=== PATIENT | female | born 1980 | race Caucasian/White ===

== ENCOUNTER → 2017-02-22 | Outpatient (CLI) | payer BC ==
--- NOTE | 2017-02-26 13:51 | MM ---
Reason for exam: screening (asymptomatic). Baseline mammogram. History: Patient had first child at age 31. Physical Findings: Nurse did not find any significant physical abnormalities on exam. MG Screening Mammo w CAD Bilateral CC and MLO view(s) were taken. The breast tissue is heterogeneously dense. This may lower the sensitivity of mammography. Asymmetric density anterior left breast, probably summation density but warrants further evaluation. These results were verbally communicated with the patient and result sheet given to the patient on 02/22/17. ASSESSMENT: Incomplete: need additional imaging evaluation, BI-RAD 0 RECOMMENDATION: Special view mammogram of the left breast. If lesion persists on supplemental views, image directed ultrasound is recommended. [facility] will attempt to contact patient to return for supplemental views and ultrasound if indicated.
--- NOTE | 2017-02-26 13:52 | MM ---
Reason for exam: additional evaluation requested from abnormal screening. History: Patient had first child at age 31. Physical Findings: Breast exam preformed at baseline screening. MG Work Up Mamm w CAD LT LM, spot compression CC, and spot compression MLO view(s) were taken of the left breast. The breast tissue is heterogeneously dense. This may lower the sensitivity of mammography. The questioned focal asymmetry completely disperses compatible with summation density. These results were verbally communicated with the patient and result sheet given to the patient on 02/22/17. ASSESSMENT: Negative, BI-RAD 1 RECOMMENDATION: Routine screening mammogram of both breasts at age 38.
== END | disposition home or self-care (01) ==
LOC: RADMAMWWP 12:59
PROVIDERS: ATTEND Obstetrics & Gynecology
DX: Z12.31 Encounter for screening mammogram for malignant neoplasm of breast (principal); R92.2 Inconclusive mammogram
CPT/HCPCS: G0202; G0206

== ENCOUNTER → 2018-05-12 | Outpatient (CLI) | payer BC ==
[2018-05-12 15:47] LABS: Basophils % (A) 0 %; Eosinophils # (A) 0.1 k/uL (0-0.7); Eosinophils % (A) 1 %; HCT 40.5 % (34.0-46.0); HGB 13.3 gm/dL (11.4-16.0); Lymphocytes # (A) 1.7 k/uL (1.0-4.8); Lymphocytes % (A) 17 %; MCH 29.5 pg (25.0-35.0); MCHC 32.9 g/dL (31.0-37.0); MCV 89.7 fL (80.0-100.0); Mean Platelet Volume 6.4; Monocytes # (A) 0.4 k/uL (0-1.0); Monocytes % (A) 4 %; Neutrophils # (A) 7.8 k/uL (1.3-7.7); Neutrophils % (A) 78 %; Platelet Count 255 k/uL (150-450); RBC 4.52 m/uL (3.80-5.40); RDW 12.4 % (11.5-15.5); WBC 9.9 k/uL (3.8-10.6)
== END | disposition home or self-care (01) ==
LOC: LABWHC1 15:13
PROVIDERS: ATTEND Obstetrics & Gynecology
DX: Z01.812 Encounter for preprocedural laboratory examination (principal); O02.1 Missed abortion
CPT/HCPCS: 36415; 85025

== ENCOUNTER → 2018-05-12 | Day surgery (SDC) | payer BC ==
--- NOTE | 2018-05-12 17:51 | HP ---
HISTORY AND PHYSICAL DATE OF PROCEDURE: 05/13/2018 This is a 37-year-old white female, 4, para 1-0-2-1, LMP 01/30/2018, at 15 and 3/7 weeks' gestation by dates. Patient presents with spotting that began over the weekend, is accompanied by no cramping. Ultrasound today at [facility] reveals a 12 and 5/7 weeks' intrauterine with no heart rate, consistent with missed AB. After thorough consultation, patient and her would like to proceed with D and E. All risks, benefits and alternatives of this plan have been discussed in detail. PAST MEDICAL HISTORY: Significant for dysfunctional uterine bleeding. PAST SURGICAL HISTORY: Voluntary termination of 2000. CURRENT MEDICATIONS: vitamins daily. ALLERGIES: NONE KNOWN. FAMILY HISTORY: Significant for hypertension, stomach cancer, kidney cancer and heart disease. SOCIAL HISTORY: Patient is . She has never been a tobacco smoker. She denies alcohol or drug use. PHYSICAL EXAMINATION: This is a pleasant white female. She is 5 feet 4 inches, 160 pounds, blood pressure 110/76. HEENT examination reveals good dentition. No thyromegaly. Normal range of motion of the neck. CHEST: Clear to auscultation in all calle anteriorly and posteriorly. Breasts are bilaterally symmetric. No skin dimpling, nipple discharge, axillary adenopathy or discernible lesions or masses. ABDOMEN: Soft. Active bowel sounds. No CVA tenderness. No organosplenomegaly. Cardiac exam reveals regular rate and rhythm with no murmur, click or rub. On pelvic exam, cervical external os is open to fingertip. Internal os is closed. Cervix is approximately 2.5 cm long to palpation. Uterus is mobile, symmetric, approximately 12-week size, anteverted, anteflexed. Adnexa are negative bilaterally. IMPRESSION: Twelve and 5/7 weeks sonographically with missed AB. No heart tones auscultated at the bedside today. PLAN: We will proceed with dilatation of the cervix and evacuation of the uterine cavity. The risks, benefits and alternatives have been discussed in detail. The patient is Rh negative and will require a RhoGAM injection tomorrow. Risks of anesthesia, aspiration, nerve damage or even are discussed. Risk of bleeding, infection, perforation to the uterus, cervix, blood vessels or indeed any organs are all discussed. The ACOG pamphlet on this procedure have been given to the patient for her review. I believe that the patient and her understand our discussion with no reservation or question. DEV / JARETTN: [id number] /
== END ==
LOC: CANPRESDC → OR 12:00
PROVIDERS: ATTEND Obstetrics & Gynecology
DX: Z53.9 Procedure and treatment not carried out, unspecified reason (principal)
CPT/HCPCS: 86850; 86900; 86901

== ENCOUNTER → 2018-05-12 | Outpatient (CLI) | payer BC ==
--- NOTE | 2018-05-12 13:37 | US ---
EXAMINATION TYPE: US OB >= 14 wk fetus DATE OF EXAM: 05/12/2018 COMPARISON: None CLINICAL HISTORY: O46.92 Bleeding 2nd trimester TECHNIQUE: Transabdominal (TA) GESTATIONAL AGE / DATING Physician Established: (14 weeks/4 days) EDC: 11/06/2018 Dates by LMP: LMP unknown Dates by First Scan: No previous this is first scan Dates by Current Scan: (12 weeks/5 days) EDC: no heart tones SURVEY IUP: Single PLACENTA: Anterior PREVIA: No Previa GOLDY: 10.7 cm Normal CERVICAL LENGTH (transabdominal: norm > 3.0cm): 3.6 cm BIOMETRY PRESENTATION: Breech BPD: 1.8 cm 12 weeks / 5 days HC: 6.6 cm 12 weeks / 4 days AC: 5.9 cm 12 weeks / 5 days FL: 0.9 cm 12 weeks / 5 days ESTIMATED WEIGHT IN GRAMS: 63.2 grams ESTIMATED WEIGHT IN LBS/OZ: 0 lbs. 2 oz. WEIGHT PERCENTAGE BASED ON ESTABLISHED DATES: < 3% HC/AC: 1.1 FL/AC: 15.7 HEART RATE: not detected IMPRESSION: No heart tones identified within the single intrauterine with a sonographic age of 12 weeks and 5 days. Confirmation with a second ultrasound is recommended prior to surgical or medical intervention although findings are most compatible with demise. [employer] impression relayed to Flori at Dr. Blackburn's office (no heart tones detected, 12 week 5 day fetus).
== END | disposition home or self-care (01) ==
LOC: RADUSWWP 12:53
PROVIDERS: ATTEND Obstetrics & Gynecology
DX: O46.92 Antepartum hemorrhage, unspecified, second trimester (principal); Z3A.12 12 weeks gestation of pregnancy
CPT/HCPCS: 76805

== ENCOUNTER → 2019-07-02 | Outpatient (CLI) | payer BC ==
--- NOTE | 2019-07-02 12:17 | CT ---
EXAMINATION TYPE: CT abdomen pelvis w con DATE OF EXAM: 07/02/2019 COMPARISON: NONE HISTORY: 39-year-old female Pain and pressure post urination. TECHNIQUE: Contiguous axial scanning of the abdomen and pelvis following administration of 100 ml Iso mary 300 IV contrast. Delayed images through the kidneys and coronal/sagittal reconstructions perform ed. CT DLP: 631.5 mGycm Automated exposure control for dose reduction was used. FINDINGS: Heart normal size without pericardial effusion. Lung bases clear without pleural effusion. Some focal fat along the anterior falciform ligament. No other focal liver lesion. Portal venous syst em is patent. No biliary ductal dilatation. Gallbladder, adrenal glands, left kidney, spleen with anterior splenule, and pancreas appear within n ormal limits. Extrarenal pelvis versus mild pelviectasis on the right with symmetric uptake and excretion of contra st from both kidneys. Scattered nonenlarged and borderline enlarged mesenteric lymph nodes measuring up to 7 mm throughout the mesentery. No dilated small bowel, free fluid, or free air. Normal appendix. Oral contrast has progressed to the proximal sigmoid. Mild stool in the sigmoid colon and rectum. No pericolonic inflammatory change. Bladder is urine distended. Uterus anteverted. Pelvic phleboliths. 2.3 cm cyst left ovary. No abnorma l fluid collection the pelvis or pelvic lymphadenopathy. Bones: No osseous destructive process. IMPRESSION: 1. Mild pelviectasis on the right probably transient. No obstructive uropathy. Normal symmetric enhan cement of both kidneys. 2. A 2.3 cm dominant follicle or functional cyst in the left ovary.
== END | disposition home or self-care (01) ==
LOC: RADCTMAIN 08:58
PROVIDERS: ATTEND Urology
DX: N28.89 Other specified disorders of kidney and ureter (principal); N83.202 Unspecified ovarian cyst, left side
CPT/HCPCS: 74177; Q9967 ×2

== ENCOUNTER → 2022-09-05 | Outpatient (CLI) | payer BC ==
--- NOTE | 2022-09-06 08:55 | MM ---
Reason for Exam: Screening (asymptomatic). Last mammogram was performed 5 year(s) and 7 month(s) ago. Patient History: Menarche at age 9. First Full-Term at age 31. Late child-bearing (after 30). Patient has history of breast feeding. Risk Values: Daisy 5 year model risk: 1.2%. NCI Lifetime model risk: 14.3%. Prior Study Comparison: 02/22/2017 Bilateral Screening Mammogram, [facility]. 02/22/2017 Left Diagnostic Mammogram, [facility]. Tissue Density: The breast tissue is heterogeneously dense. This may lower the sensitivity of mammography. Findings: Analyzed By CAD. There is no suspicious group of microcalcifications or new suspicious mass in either breast. Overall Assessment: Negative, BI-RAD 1 Management: Screening Mammogram of both breasts in 1 year. A clinical breast exam by your physician is recommended on an annual basis and results should be correlated with mammographic findings. Electronically signed and approved by: Bandar Gunter M.D. Radiologis
== END | disposition home or self-care (01) ==
LOC: RADMAMWWP 07:53
PROVIDERS: ATTEND Obstetrics & Gynecology
DX: Z12.31 Encounter for screening mammogram for malignant neoplasm of breast (principal)
CPT/HCPCS: 77063; 77067